=== PATIENT | female | born 2000 | race Caucasian/White ===

== ENCOUNTER 2024-09-21 19:14 | Emergency (ER) | payer OTHER, SELFPAY ==
[2024-09-21 19:15] VITALS: BP 143/94; PULSE 66; RESP 16; TEMP 37.1; O2SAT 100; BMI 29.2
--- NOTE | 2024-09-21 19:26 | ED.VIS.GI ---
HPI HPI - GI History of Present Illness Chief Complaint: Abd Pain Narrative Narrative: 24-year-old female with no significant past medical history presents from urgent care with concerns for acute appendicitis. She relates history that she has had right lower quadrant abdominal pain for about a week. No exacerbating or alleviating factors. She denies any nausea or vomiting, no fevers or chills, no diarrhea or problems with bowel movements, no dysuria or hematuria. Last menstrual period was approximately 3 weeks ago. She relates history that about a month ago she had UTI and perhaps had a yeast infection. She went to urgent care, and was given antibiotics and her symptoms improved. Upon the symptom return a week ago, she went back today, and there was concern that she may have an acute appendicitis. PFSH PFSH Home Medications ?Medication ?Instructions ?Recorded ?Last Taken ?Type fluoxetine 40 mg capsule (Prozac) 40 mg PO DAILY 09/21/24 Unknown History hydroxyzine HCl 25 mg tablet 25 mg PO Q8H PRN anxiety 09/21/24 Unknown History Allergy/AdvReac Type Severity Reaction Status Date / Time No Known Allergies Allergy Verified 09/21/24 19:15 Social History Smoking Status: Never smoker ROS ROS ED ROS Narrative Review of systems positive for right lower quadrant abdominal pain/right pelvic pain. No fevers or chills, no nausea or vomiting, no dysuria or hematuria, no diarrhea or problems with bowel movements. No exacerbating or alleviating factors. Hurts more when she touches the area. EXAM Physical Exam Narrative Exam Narrative: Afebrile. Vital signs noted. Nontoxic-appearing. Cardiovascular examination feels a regular rate and rhythm. Lungs are clear to auscultation bilaterally. Abdomen is soft, with minimal tenderness to palpation of the right lower quadrant. No guarding or rebound. No peritoneal signs. Positive bowel sounds. Neurological examination is nonfocal and nonlateralizing. Const Vital Signs: 09/21/24 19:15 Temperature 98.7 F Temperature Source Oral Pulse Rate 66 Respiratory Rate 16 Blood Pressure 143/94 H Blood Pressure Mean 110 Pulse Ox 100 MDM MDM MDM Narrative Medical decision making narrative: The differential diagnosis includes but not limited to appendicitis versus ovarian pathology including ovarian cyst versus ectopic . I have lower concern for ectopic because patient has an IUD in place. She may have ureterolithiasis or pyelonephritis as well, but she is not really having other symptoms. I do feel CT imaging is indicated. Serum will be obtained as well. She declined any analgesics here in the emergency department initially. She will be bolused normal saline 1 L intravenously and CBC and BMP will be checked as well as urinalysis. I reviewed her laboratory work and she has slight leukocytosis of 12.4 which I think is nonspecific, hemoglobin normal at 13.9 with hematocrit 40.7. Platelet count normal at 192. BMP is remarkable for creatinine low at 0.63, glucose 89 with sodium normal as well as potassium. Serum test is negative so I doubt ectopic , additionally she has an IUD in place. I reviewed her urinalysis and she has 5-10 WBCs but 10-25 squamous epithelial cells so I feel this is a contaminated specimen and I do not feel antibiotics are indicated. Of note, I reviewed the radiology report of the CT of the abdomen and pelvis and specifically the appendix is normal. She does have bilateral ovarian/adnexal cysts with the largest being 2.9 cm. Hence, I do not feel that she is having ovarian torsion. Repeat examination shows her resting comfortably on the cot using her cellular telephone. At this point in time, I feel she can be discharged to follow-up with [facility] as needed. Return instructions to the emergency department were reviewed. Patient motivated for discharge. Disposition is discharged home in stable condition. History & Record Review Discussion w/independent historian: Patient Lab Data Attestation: I reviewed the patient's lab results. Labs: Laboratory Results - last 24 hr 09/21/24 09/21/24 19:30 20:16 WBC 12.4 H RBC 4.68 Hgb 13.9 Hct 40.7 MCV 87.0 MCH 29.7 MCHC 34.2 RDW Std Deviation 38.7 RDW Coeff of [place] 12.2 Plt Count 192 MPV 10.8 Immature Gran % (Auto) 0.500 Neut % (Auto) 76.5 H Lymph % (Auto) 15.7 L [place] % (Auto) 6.0 Eos % (Auto) 1.0 Baso % (Auto) 0.3 Absolute Neuts (auto) 9.5 H Absolute Lymphs (auto) 1.95 Nucleated RBC % 0 Sodium 137 Potassium 3.7 Chloride 102 Carbon Dioxide 24.6 Anion Gap 10 BUN 16 Creatinine 0.63 L Estim Creat Clear Calc 139.90 Est GFR (MDRD) Non-Af 128 BUN/Creatinine Ratio 24.8 H Glucose 89 Calcium 9.1 Serum , Qual NEGATIVE Urine Color Straw Urine Clarity Clear Urine pH 6.5 Ur Specific [place] 1.010 Urine Protein 30 H Urine Glucose (UA) Normal Urine Ketones 50 H Urine Occult Blood Negative Urine Nitrite Negative Urine Bilirubin Negative Urine Urobilinogen Normal Ur Leukocyte Esterase 100 H Urine RBC 0-5 SEEN Urine WBC 5-10 SEEN Ur Squamous Epith Cells 10-25 SEEN Urine Bacteria 0 SEEN Urine Mucus 0 SEEN Radiography Diagnostic Testing: Clinical Impression(s) from Imaging Studies Abdomen/Pelvis CT 09/21/24 20:00 IMPRESSION: No acute findings in the abdomen or pelvis. OVERALL FINAL ASSESSMENT: . LI-RADS is not meant to be used in patients <18 years or patients with cirrhosis due to congenital hepatic fibrosis or due to vascular disorders, because these patients have a lower chance of developing HCC. Reading Location: [facility] Discharge Plan Triage Chief Complaint: Abd Pain ED Provider: Cliff Aguirre Dx/Rx/DC Orders Clinical Impression: Right lower quadrant abdominal pain, Ovarian cyst Instructions: ED Abdominal Pain Unkn Cause Fem, ED Ovarian Cyst Prescriptions: No Action fluoxetine [Prozac] 40 mg capsule 40 mg PO DAILY hydroxyzine HCl 25 mg tablet 25 mg PO Q8H PRN (Reason: anxiety) Primary Care Provider: NOT,DEFINED Referrals: Doni Keller MD [Med Staff - Active Staff] - 3-5 Days if not improving NOT,DEFINED [Primary Care Provider] - Activity Restrictions/Additional Instructions: Follow-up with [facility] as needed. Return to the emergency department with increased pain, fever, nausea and vomiting, new or worsening symptoms. Print Language: [place] Disposition Disposition: Home, Self Care
[2024-09-21 19:39] LABS: Absolute Lymphocyte Count 1.95 X10^3/uL (0.83-4.51); Absolute Neutrophil Count 9.5 X10^3/uL (2.0-7.7); Basophil# 0.04 X10^3/uL; Basophil% 0.3 % (0-1); Eosinophil# 0.12 X10^3/uL; Hematocrit 40.7 % (37-47); Hemoglobin 13.9 g/dL (12.0-15.0); Lymphocyte # 1.95 X10^3/ul (0.83-4.51); Lymphocyte % 15.7 % (19-41); Mean Corp Hgb Conc 34.2 g/dL (32-36); Mean Corpuscular Hgb 29.7 pg (27.0-32.0); Mean Platelet Vol. 10.8 fl (6.2-12.0); Monocyte# 0.75 X10^3/uL; NRBC Flagged by Analyzer 0 % (0-5); Neutrophil # 9.52 X10^3/uL (2.7-7.7); Neutrophil % 76.5 % (47-70); Platelet Count 192 K/mm3 (150-450); RBC Distribution Width CV 12.2 % (11.6-14.6); RBC Distribution Width SD 38.7 fl (35.1-43.9); Red Blood Count 4.68 M/mm3 (4.2-5.4); White Blood Count 12.4 K/mm3 (4.4-11.0)
[2024-09-21] MEDS: 0.9% Normal Saline (1000mL) 1,000 ML 999 ML IV (19:40)
[2024-09-21 19:48] LABS: Internal QC Validated? YES +Cl - CLEAR BKGD; Pregnancy, Serum, hCG Quali. NEGATIVE Negative
[2024-09-21 19:59] LABS: Anion Gap 10 (5-15); BUN 16 mg/dL (4-19); BUN/Creat Ratio 24.8 RATIO (10-20); Calcium,Total 9.1 mg/dL (7.6-11.0); Carbon Dioxide 24.6 mmol/L (21.0-32.0); Chloride 102 mmol/L (98-108); Creatinine, Serum 0.63 mg/dL (0.70-1.20); EST Glomerular Filtration Rate 128 (>60); Glucose 89 mg/dL (70-99); Potassium 3.7 mmol/L (3.3-5.1); Sodium Level 137 mmol/L (133-145)
--- NOTE | 2024-09-21 20:00 | CT_ITS ---
PROCEDURE: ABDOMEN/PELVIS W IV CONT ONLY 09/21/2024 REASON FOR EXAM: RIGHT LOWER QUADRANT ABDOMINAL PAIN TECHNIQUE: Abdomen and pelvis CT with intravenous contrast. Coronal and Sagittal reconstruction series were provided. PATIENT PREPARATION: Per protocol ORAL CONTRAST TYPE: None. AMOUNT: mL CONTRAST: Omnipaque 350 VOLUME: 100 mL Not Provided Gauge IV One or more dose reduction techniques were used (e.g., Automated exposure control, adjustment of the mA and/or kV according to patient size, use of iterative reconstruction technique. COMPARISON: None FINDINGS: Lung bases: Unremarkable Liver: Normal size. No mass. Gallbladder: No ductal dilation. Gallbladder is unremarkable. Spleen: Normal size. Pancreas: Normal size without evidence of mass surrounding inflammation or ductal dilation. Adrenals: Unremarkable. Kidneys: Normal renal sizes. No hydronephrosis. Bladder: Urinary bladder is unremarkable. Reproductive Organs: Bilateral adnexal cysts, the larger on the right measures 2.9 cm. Small physiologic fluid in the posterior cul-de-sac. IUD is noted. Bowel: Stomach is unremarkable. No bowel dilation or wall thickening. Large colonic stool. Appendix: Normal appendix. Lymph nodes: No suspicious lymph node enlargement. Vasculature: The abdominal aorta and IVC are normal. Peritoneum / Retroperitoneum: No ascites. No pneumoperitoneum. Bones: Unremarkable CT/Abdomen/Pelvis W IV Cont ONLY IMPRESSION: No acute findings in the abdomen or pelvis. OVERALL FINAL ASSESSMENT: . LI-RADS is not meant to be used in patients <18 years or patients with cirrhosi s due to congenital hepatic fibrosis or due to vascular disorders, because these patients have a lower chance of developing HC C. Reading Location: [facility]
[2024-09-21 20:23] LABS: Bacteria 0 SEEN /hpf (None Seen); Mucous, Urine 0 SEEN /hpf (<or=2+)
[2024-09-21 20:31] LABS: Color, Urine Straw (Yellow); Glucose, Dipstick Normal (Normal); Ketone-Dipstick 50 mg/dl (Negative); Leukocyte Esterase-Dipstick 100 /ul (Negative); Nitrite-Dipstick Negative (Negative); Occult Blood-Urine Negative /ul (Negative); Protein-Dipstick 30 mg/dl (Negative); Urine Bilirubin Dipstick Negative (Negative); Urine Clarity Clear (Clear); Urine Urobilinogen Normal (Normal); Urine pH 6.5 (5.0 - 8.0)
[2024-09-21 21:12] LABS: Squamous Epithelial Cells - UA 10-25 SEEN /hpf (5-10)
[2024-09-21 21:13] LABS: White Blood Cells 5-10 SEEN /hpf (0-5)
[2024-09-21 21:14] LABS: Red Blood Cells-Urine 0-5 SEEN /hpf (0-5)
[2024-09-21 21:15] VITALS: BP 129/71; PULSE 72; RESP 16; TEMP 36.7; O2SAT 100
== END 2024-09-21 21:27 | disposition home or self-care (01) ==
PROVIDERS: Emergency Provider Emergency Medicine; Visit Provider Emergency Medicine
DX: R10.31 Right lower quadrant pain (principal); N83.202 Unspecified ovarian cyst, left side; N83.201 Unspecified ovarian cyst, right side; R10.2 Pelvic and perineal pain; Z97.5 Presence of (intrauterine) contraceptive device
CPT/HCPCS: 74177; 80048; 81001; 84703; 85025; 99283; Q9967